=== PATIENT | male | born 1955 | race Caucasian/White ===

== ENCOUNTER 2023-02-26 06:56 | Day surgery (SDC) | payer MEDICARE, OTHER ==
[2023-02-26] VITALS (11 sets, daily range): BP systolic 119–158; BP diastolic 80–103
[~2023-02-26] VITALS: Ht 177.8 cm; Wt 91.0 kg
[~2023-02-26 06:56] MED LIST: AMLO5 PO; ATOR40TA PO; Aspir 8181 MG PO; LOSARTAN POTASS50 M1 PO; METO50ER PO
--- NOTE | 2023-02-26 11:45 | NUR ---
TR BAND DEFLATED SLOWLY PER PROTOCOL. SLIGHT BLEEDING WITH INITIAL 2CC OF AIR REMOVAL, AIR REINSTILLED AND DEFLATION ATTEMPTED AGAIN AFTER 15 MIN PER PROTOCOL WITH SUCCESSFUL DEFLATION. ALL AIR REMOVED AT THIS TIME. PT VSS REMAIN STABLE. DR. JANE IN TO SEE PT.
--- NOTE | 2023-02-26 12:48 | NUR ---
PT. DISCHARGE INSTRUCTIONS REVIEWED IN DETAIL. PT. VSS. UPON DISCHARGE. PT. RADHA TO GET SELF DRESSED W/O DIFFICULTY. PT. HAS CLOTH DOT IN PLACE. RADIAL ACCES SITE WNL, NO HEMATOMA, NO BLEEDING. PT. ARM BOARD REMAINS IN PLACE AND SLING PROVIDED UPON DISCHARGE. PT IV REMOVED, CATHETER INTACT. ALL BELONGINGS TAKEN WITH PATIENT UPON DISCHARGE.
== END 2023-02-26 13:50 | disposition home or self-care (01) ==
LOC: MHTC 06:56
DX: I25.118 Atherosclerotic heart disease of native coronary artery with other forms of angina pectoris (principal); I47.9 Paroxysmal tachycardia, unspecified; I12.9 Hypertensive chronic kidney disease with stage 1 through stage 4 chronic kidney disease, or unspecified chronic kidney disease; N18.9 Chronic kidney disease, unspecified; Z79.899 Other long term (current) drug therapy; Z79.82 Long term (current) use of aspirin
CPT/HCPCS: 76937; 93454; 99152; A9270; C1769; C1887; C1894; J1644; J2250; J3010; J7030; J7050; Q9967